=== PATIENT | female | born 1950 | race Caucasian/White ===

== ENCOUNTER → 2022-04-30 14:30 | Outpatient (CLI) | payer MEDICARE, BC, SELFPAY ==
--- NOTE | 2022-04-30 14:36 | DI.CT.S_ITS ---
PROCEDURE: CT ABDOMEN PELVIS W CON INDICATIONS: Ventral hernia TECHNIQUE: After the administration of oral and intravenous contrast, axial sections were acquired from the lung bases to the pubic symphysis. Coronal and sagittal reformats were performed. For radiation dose reduction, the following was used: automated exposure control, adjustment of mA and/or kV according to patient size. COMPARISON:None. FINDINGS: Image quality: Excellent. Lung bases: Unremarkable. Heart: No significant findings. ABDOMEN: Liver: Unremarkable. Gallbladder: Unremarkable. Biliary ducts: Unremarkable. Pancreas: Unremarkable. Spleen: Unremarkable. Adrenal Glands: 1.9 cm right adrenal nodule with indeterminate attenuation. Kidneys and Ureters: 3 mm non-obstructing stone on the right. No hydronephrosis. Stomach and Bowel: Stomach, small bowel loops, and colon are unremarkable. Peritoneum: No abnormal intraperitoneal fluid. No free air. Ventral Wall: Wide-mouth ventral wall hernia containing loops of nonobstructed small bowel. The neck measures 4.7 x 4.1 cm. Abdominal Nodes: No retroperitoneal or mesenteric adenopathy by size criteria. Vessels: Aorta and inferior vena cava are normal in size. PELVIS: Pelvic Organs: Unremarkable. Bladder: Unremarkable. Pelvic Nodes: No enlarged lymph nodes. Miscellaneous: No inguinal hernias are seen. Bones: Unremarkable. 5 IMPRESSION: 1. Wide-mouth ventral wall hernia containing loops of nonobstructed small bowel. The neck measures 4.7 x 4.1 cm. 2. Indeterminate right adrenal nodule measuring 1.9 cm. Further characterization with CT (adrenal mass protocol) is recommended, per consensus guidelines. 3. 3 mm right-sided nonobstructing nephrolithiasis. 1. Dictated by: Adonis Morrow M.D. on 04/30/2022 at 16:43 Approved by: Adonis Morrow M.D. on 04/30/2022 at 16:47
[2022-04-30 15:06] LABS: BUN Creatinine Ratio 21.5 (6-22); Blood Urea Nitrogen 14 mg/dL (7-17); Estimated Glomerular Filt Rate > 60 mL/min (>60)
== END ==
PROVIDERS: PCP Internal Medicine; Referring Provider Surgery; Visit Provider Surgery
DX: K43.9 Ventral hernia without obstruction or gangrene (principal); E27.9 Disorder of adrenal gland, unspecified; N20.0 Calculus of kidney
CPT/HCPCS: 36415; 74177; 82565; 84520; 99213; Q9967

== ENCOUNTER 2022-05-29 07:59 | Day surgery (SDC) | payer MEDICARE, BC, SELFPAY ==
[2022-05-22 08:24] VITALS: BMI 27.4
[2022-05-29] VITALS (12 sets, daily range): BP systolic 103–160; BP diastolic 55–89; PULSE 61–86; RESP 14–20; TEMP 35.7–37.5; O2SAT 93–98; BMI 26.9
[2022-05-29] MEDS: LACTATED RINGERS 1,000 ML 42 ML IV (08:49)
[2022-05-29 09:08] LABS: COVID19 -Nasal RAPID Negative (Negative)
--- NOTE | 2022-05-29 09:50 | PM.PREOP ---
Pre-operative Note COVID-19 COVID-19 status: Not tested Interval Note History & Physical reviewed/Exam performed by Physician: Yes Changes to H&P: Yes H&P completed within 30 days and has changed as indicated here:: Akanksha reports that she has lost about 10 lbs since her last office visit. ASA Class (for procedural sedation): II
--- NOTE | 2022-05-29 10:27 | SUR.OPER ---
Supine on padded OR bed, head on pillow, arms secured on padded arm boards at <90 degrees abduction, legs uncrossed, safety belt at thigh, tape over blanket over lower legs.
[2022-05-29] MEDS: ACETAMINOPHEN IV 1,000 MG/100 ML VIAL 400 MG IV (10:30)
[2022-05-29] MEDS: BUPIVACAINE 0.25% (PF) 30 ML, EPINEPHrine 0.15 MG INJ (10:31)
[2022-05-29] MEDS: CLINDAMYCIN 600 MG/50 ML PIGGYBACK 50 MG IV (10:32)
--- NOTE | 2022-05-29 12:00 | P.OP_ITS ---
Operative Date/Time/Diagnoses Date of procedure: 05/29/22 Time of procedure: 12:00 Pre-op diagnosis: Ventral hernia Post-op diagnosis: same Procedure & Clinicians Procedure: Open ventral hernia repair with mesh Same procedure as scheduled: Yes Surgeon: Mike Guerrero Operative Notes Procedure in detail: Preoperative antibiotic was administered. The patient was brought to the operating room, placed on the table in the supine position and general endotracheal anesthesia was induced. The abdomen was prepped and draped in the usual fashion. A time-out was performed. A 15 cm incision was made in the midline. The hernia sac was quite close to the dermis.. The hernia sac was freed from the surrounding subcutaneous adipose tissue and the fascial ring and the peritoneal cavity was entered. There was no bowel or omentum adherent to the sac. Normal-appearing loops of bowel were reduced into the abdomen. The sac was amputated and then run closed with a 3-0 Vicryl. The fascia was then closed transversely with multiple interrupted 0 Ethibond sutures. The subcutaneous adipose tissue was cleared off of the anterior sheath circumferentially about 2 cm in each direction. A piece of polypropylene mesh was trimmed to fit over the fascial closure and secured with Tisseel. Once the Tisseel was dried the subcutaneous adipose tissue was closed with interrupted 3- 0 Vicryl sutures. The skin was closed with multiple interrupted 3-0 Vicryl dermal sutures followed by a running 4 Monocryl subcuticular closure. Steri-Strips were applied and an abdominal binder was applied EBL: 15 mL Post-operative Condition: stable Disposition: PACU
[2022-05-29] MEDS: OXYCODONE IR 5 MG TABLET PO (12:18)
[2022-05-29] MEDS: HYDROCODONE/ACET 5/325 TABLET 1 TAB PO (15:29)
[2022-05-29] MEDS: HYDROCODONE/ACET 5/325 TABLET 2 TAB PO (20:14)
[2022-05-30] MEDS: HYDROCODONE/ACET 5/325 TABLET 2 TAB PO ×2 (02:27→08:03)
[2022-05-30 03:00] VITALS: BP 124/59; PULSE 78; RESP 17; O2SAT 94
[2022-05-30 03:52] VITALS: TEMP 36.9
[2022-05-30 07:45] VITALS: BP 126/70; PULSE 66; RESP 16; TEMP 36.9; O2SAT 93
--- NOTE | 2022-05-30 11:11 | CM.DANOTE ---
Initial DCP Assessment Note Pt is a 71 yo female, resident of [place], now POD#1 from Open ventral hernia repair with mesh PCP: Gerardo Mitchell Payer: [facility] Met w/patient and her brother this morning, introduces self and role. Visit kept brief as Dr Guerrero entered soon after. Discharge order now in Patient ambulating to and from indp w/walker. Patient plans to discharge home w/supportive family and denies needs from this [employer]IL TRANSPORTATION [employer] Plan: Discharge home w/family via family to transport, close outpatient follow up recommended [facility] Sharma Discharge Planning/Care Management CM Discharge Assessment Start: 05/30/22 11:05 Freq: Status: Active Protocol: Document 05/30/22 11:06 MYRA (Rec: 05/30/22 11:11 MYRA [id number]) Discharge Planning Assessment Assigned Ap Processor STONE Tate DPOA/Assigned Designee Name brother Bojorquez Contact Information [phone] Advance Directives? No History Provided By Patient Prior Living Arrangements House Household Members family Type of transporation used prior to Drives own vehicle admit Independent with ADL's Yes Is patient alert and oriented? Yes Barriers to Discharge No Discharge Plan Home Transportation Arrangement Family Referrals Initiated None needed
== END 2022-05-30 11:25 | disposition home or self-care (01) ==
LOC: OR 08:02 → AC 12:21
PROVIDERS: PCP Internal Medicine; Referring Provider Surgery; Visit Provider Surgery
PROC: (CPT 49591; principal; 2022-05-29 09:45)
DX: K43.9 Ventral hernia without obstruction or gangrene (principal); Z20.822 Contact with and (suspected) exposure to COVID-19
CPT/HCPCS: 49591; 87635; C9803; C1781; J0131; J0171; J1100; J2405; J2704; J3010

== ENCOUNTER → 2022-06-22 08:54 | Outpatient (CLI) | payer MEDICARE, BC, SELFPAY ==
[2022-05-29 13:20] VITALS: BMI 26.9
--- NOTE | 2022-06-22 08:56 | DI.CT.S_ITS ---
PROCEDURE: CT ABDOMEN ADRENAL PROTOCOL INDICATIONS: Follow up adrenal mass TECHNIQUE: Noncontrast 3 mm thick sections acquired from the diaphragms to the iliac crests. After the administration of intravenous contrast, 3 mm thick venous-phase and 15-minute delayed images acquired from the diaphragms to the iliac crests. For radiation dose reduction, the following was used: automated exposure control, adjustment of mA and/or kV according to patient size. COMPARISON: None. FINDINGS: Image quality: Excellent. Lung bases: Lung bases are clear. Heart size is normal. Adrenal glands: 1.8 centimeter right adrenal mass with Hounsfield units consistent with a benign adrenal adenoma (5 HU). Solid organs: Liver is normal in size and enhancement. Gallbladder contains sludge but no wall thickening . Biliary system is non dilated. Pancreas enhances normally. Spleen is normal in size and enhancement. Kidneys are normal in size and enhancement. No hydronephrosis or nephrolithiasis. Peritoneum and bowel: Unenhanced bowel loops are normal in caliber and wall thickness. No free fluid or air. Nodes and vessels: No retroperitoneal or mesenteric adenopathy by size criteria. Aorta and inferior vena cava are normal in size. Miscellaneous: Laparotomy. There is a fluid collection deep to the surgical scar measuring 2.2 centimeters. Bones: No suspicious bony lesions. No vertebral body compression fractures. IMPRESSION: 1.8 centimeter benign left adrenal adenoma by Hounsfield unit criteria (5 HU). Laparotomy. 2.1 centimeter hypoattenuating collection deep to the surgical scar probably represents a small postoperative seroma, less likely abscess. Correlate with symptoms. Dictated by: Adonis Morrow M.D. on 06/22/2022 at 13:51 Approved by: Adonis Morrow M.D. on 06/22/2022 at 13:55
[2022-06-22 11:09] LABS: BUN Creatinine Ratio 18.6 (6-22); Blood Urea Nitrogen 13 mg/dL (7-17); Calcium 9.9 mg/dL (8.4-10.2); Carbon Dioxide 26 mmol/L (22-32); Chloride 107 mmol/L (98-107); Estimated Glomerular Filt Rate > 60 mL/min (>60); Glucose 96 mg/dL (80-110); HEMOLYSIS < 15 (0-50); Potassium 3.7 mmol/L (3.4-5.1); Sodium 139 mmol/L (137-145)
== END ==
PROVIDERS: PCP Internal Medicine; Referring Provider Surgery; Visit Provider Surgery
DX: D35.02 Benign neoplasm of left adrenal gland (principal)
CPT/HCPCS: 36415; 74170; 80048; Q9967